=== PATIENT | female | born 1980 | race Caucasian/White ===

== ENCOUNTER 2016-12-23 19:53 | Emergency (ER) | payer SELFPAY ==
[~2016-12-23] VITALS: Ht 162.6 cm; Wt 115.4 kg
[2016-12-23 19:58] VITALS: BP 150/100
--- NOTE | 2016-12-23 21:11 | NUR ---
PT TAKEN TO BED 8
--- NOTE | 2016-12-23 21:45 | NUR ---
36 Y F BIB FAMILY FOR VAG BLEEDING X 2 DAYS. 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 PT STATES BLOOD IS LIGHT PINK BUT JUST SPOTTING. PT HAS HAD 6 MISCARRIAGES. PT AAOX 4, BREATHING IS UNLABORED.
--- NOTE | 2016-12-23 21:46 | NUR ---
Dr. Reinoso evaluating patient at bedside.
--- NOTE | 2016-12-23 22:05 | NUR ---
Ultrasound at bedside.
--- NOTE | 2016-12-23 22:13 | NUR ---
PHLEB AT BEDSIDE FOR LAB DRAWS
[2016-12-23 22:27] LABS: BASOPHILS # (AUTO) 0.4 K/uL (0.00-0.22); EOSINOPHILS # (AUTO) 0.7 K/uL (0-0.4); HEMOGLOBIN 13.9 g/dL (12.0-16.0)
[2016-12-23 22:34] LABS: BASOPHILS % (AUTO) 3.5 % (0.0-2.0); HEMATOCRIT 42.2 % (36-48); LYMPHOCYTES # (AUTO) 3.6 K/uL (2.5-16.5); LYMPHOCYTES % (AUTO) 32.5 % (20.5-51.1); MEAN CORPUSCULAR HEMOGLOBIN 28 pg (27-31); MEAN CORPUSCULAR HGB CONC 33 g/dL (33-37); MEAN CORPUSCULAR VOLUME 86 fL (80-94); MONOCYTES % (AUTO) 9.3 % (1.7-9.3); NEUTROPHILS # (AUTO) 5.4 K/uL (1.8-7.7); NEUTROPHILS % (AUTO) 48.7 % (42.2-75.2); PLATELET COUNT (AUTO) 275 K/uL (140-450); RED BLOOD CELL COUNT(AUTO) 4.93 MIL/uL (4.20-5.40); RED CELL DISTRIBUTION WIDTH 12.8 % (11.6-13.7); WHITE BLOOD COUNT (AUTO) 11.1 K/uL (4.8-10.8)
[2016-12-23 22:35] LABS: ANION GAP 9.2 (8-16); CALCIUM 8.4 mg/dL (8.5-10.1); CARBON DIOXIDE 29.5 mmol/L (21-32); CREATININE 0.8 mg/dL (0.6-1.3); POTASSIUM 4.7 mmol/L (3.5-5.1)
[2016-12-23 22:43] LABS: BILIRUBIN,URINE NEGATIVE (NEGATIVE); BLOOD, URINE 2+ (NEGATIVE); COLOR,URINE YELLOW (YELLOW); LEUKOCYTE ESTERASE ,URINE NEGATIVE (NEGATIVE); NITRITE, URINE NEGATIVE (NEGATIVE); PROTEIN,URINE NEGATIVE (NEGATIVE); UGLUCOSE NEGATIVE (NEGATIVE); UROBILINOGEN,URINE 0.2 EU/dL (0.2 - 1)
[2016-12-23 22:47] LABS: APPEARANCE,URINE SLIGHTLY HAZY (CLEAR)
[2016-12-23 22:55] LABS: RBC,URINE 0-5 (RARE) /HPF (0-5); WBC,URINE 0-5 (RARE) /HPF (0-5)
[2016-12-23 22:56] LABS: BACTERIA,URINE OCCASSIONAL /HPF (None Seen)
[2016-12-23 23:46] VITALS: BP 132/84
== END 2016-12-23 23:45 | disposition home or self-care (01) ==
LOC: MED 19:53
DX: N93.8 Other specified abnormal uterine and vaginal bleeding (principal); Z88.0 Allergy status to penicillin; Z71.6 Tobacco abuse counseling
CPT/HCPCS: 36415; 76801; 80048; 81001; 81025; 84702; 85025; 86900; 86901; 99285; Q0092